=== PATIENT | male | born 2000 | race Caucasian/White ===

== ENCOUNTER 2024-06-01 22:57 | Emergency (ER) | payer MEDICAID, SELFPAY ==
[2024-06-01 22:58] VITALS: BP 135/78; PULSE 80; RESP 16; TEMP 37.2; O2SAT 98
--- NOTE | 2024-06-01 23:00 | DI.RAD_ITS ---
Exam(s) XR HAND RT COMPLETE EXAM: XR HAND RT COMPLETE CLINICAL HISTORY: trauma. TECHNIQUE: 2D digital imaging was performed. Three views. COMPARISON: No exams were available for comparison FINDINGS: BONES: No acute fracture is present. 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 No bony destructive lesion is seen. JOINTS: No dislocation present. SOFT TISSUE: Dorsal soft tissue swelling. No abnormal gas collection or foreign body. IMPRESSION: Soft tissue swelling. No acute fracture. DATA REPOSITORY: RADIATION DOSE DELIVERED:
--- NOTE | 2024-06-01 23:00 | DI.RAD_ITS ---
Exam(s) XR RIBS LT W PA LAT CHEST CLINICAL HISTORY trauma. COMPARISON: No exams were available for comparison TECHNIQUE:: PA and lateral views of the chest and four views of the left ribs were performed. FINDINGS: LUNGS: Clear. No pleural abnormality seen. HEART: Normal. MEDIASTINUM: Normal. BONES: No displaced rib fracture is seen. No compression fractures are seen in the thoracic spine. The sternum is grossly intact no bony destructive lesion is seen. OTHER FINDINGS: None. IMPRESSION: 1. Unremarkable radiographic appearance of the left ribs. 2. No acute pulmonary findings.
--- NOTE | 2024-06-01 23:00 | DI.RAD_ITS ---
Exam(s) XR HAND LT COMPLETE EXAM: XR HAND LT COMPLETE CLINICAL HISTORY: trauma. TECHNIQUE: 2D digital imaging was performed. Three views. COMPARISON: CR,XR XR HAND RT COMPLETE from 06/01/2024 FINDINGS: BONES: No acute fracture is present. No bony destructive lesion is seen. JOINTS: No dislocation present. SOFT TISSUE: Dorsal soft tissue swelling. No foreign body. IMPRESSION: Soft tissue swelling. No evidence of fracture. DATA REPOSITORY: RADIATION DOSE DELIVERED:
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
[2024-06-01 23:47] VITALS: BP 124/77; PULSE 82; RESP 18; O2SAT 98
[2024-06-02 01:03] VITALS: BP 133/82; PULSE 90; RESP 16; O2SAT 98
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
== END 2024-06-02 01:22 | disposition home or self-care (01) ==
PROVIDERS: Emergency Provider Emergency Medicine; PCP Family Medicine
DX: S20.212A Contusion of left front wall of thorax, initial encounter (principal); S60.222A Contusion of left hand, initial encounter; S60.221A Contusion of right hand, initial encounter; Y35.812A Legal intervention involving manhandling, bystander injured, initial encounter; Y93.89 Activity, other specified; F17.210 Nicotine dependence, cigarettes, uncomplicated
CPT/HCPCS: 99283; 71046; 71100; 73130